=== PATIENT | female | born 1950 | race Caucasian/White ===

== ENCOUNTER 2016-12-28 18:03 | Emergency (ER) | payer OTHER ==
[2016-12-28] MEDS ORDERED: Amoxicillin/Clavulanate TAB* 875 MG PO ONE (19:43)
[2016-12-28] MEDS ORDERED: Tetan/Diph/Pertus SYR(Tdap)* 0.5 ML SYR(BOOSTRIX) use SYR IM ONE (19:44)
--- NOTE | 2016-12-28 19:44 | UC ---
Bite Injury/Animal HPI - HPI Summary HPI Summary: dog bite right third finger---Bite by her dog accidentally . PW to distal right third finger, patient utd on tetnus, dog up to date on rabies - History of Current Complaint Hx Obtained From: Patient ?: No Severity Currently: Mild Severity Initially: Mild Pain Intensity: 2 Pain Scale Used: 0-10 Numeric Onset/Duration: Sudden Onset, Lasting Hours, Still Present Type of Bite: Pet Has Animal Been Immunized?: Yes Character: Puncture Aggravating Factor(s): Nothing Alleviating Factor(s): Nothing Associated Signs And Symptoms: Positive: Negative Hx of Bite: Provoked by: - being scared and his tooth caught in another dogs collar Animal Available for Observation: Yes Animal Control Notified: Yes <Jennifer Castellano - Last Filed: 12/30/16 17:14> <Olga Medrano - Last Filed: 12/30/16 18:39> - History of Current Complaint Chief Complaint: UCBiteInjury Stated Complaint: DOG BITE Time Seen by Provider: 12/28/16 18:40 - Allergies/Home Medications Allergies/Adverse Reactions: Allergies Allergy/AdvReac Type Severity Reaction Status Date / Time Acetaminophen [From Vicodin] Allergy Nausea Verified 12/28/16 18:18 Hydrocodone [From Vicodin] Allergy Nausea Verified 12/28/16 18:18 Home Medications: Home Medications Aspirin [Aspirin 81 MG TAB] 81 mg PO DAILY 12/28/16 [History Confirmed 12/28/16] Citracal TAB* 1 tab PO DAILY 12/28/16 [History Confirmed 12/28/16] PMH/Surg Hx/FS Hx/Imm Hx Previously Healthy: No - Surgical History Surgical History: None - Family History Known Family History: Positive: None Family History: no reported cardiovascular issues in family lineage - Social History Occupation: Retired Lives: With Family Alcohol Use: Rare Substance Use Type: None Smoking Status (MU): Never Smoked Tobacco <Jennifer Castellano - Last Filed: 12/30/16 17:14> Review of Systems Constitutional: Negative Skin: Negative, Bruising - distal right third finger also 2 punture wound and small amount of flapped skin avulasion just proximal to nail Eyes: Negative ENT: Negative Respiratory: Negative Cardiovascular: Negative Gastrointestinal: Negative Genitourinary: Negative Motor: Negative Neurovascular: Negative Musculoskeletal: Negative, Arthralgia - right 3rd finger Neurological: Negative Psychological: Negative All Other Systems Reviewed And Are Negative: Yes <Jennifer Castellano - Last Filed: 12/30/16 17:14> Physical Exam Triage Information Reviewed: Yes Appearance: Well-Appearing, No Pain Distress, Well-Nourished Vital Signs: Initial Vital Signs Temp 98 F 12/28/16 18:20 Pulse 81 12/28/16 18:20 Resp 20 12/28/16 18:20 BP 207/110 12/28/16 18:20 Pulse Ox 100 12/28/16 18:20 Vital Signs Reviewed: Yes Eye Exam: Normal Eyes: Positive: Conjunctiva Clear ENT Exam: Normal ENT: Positive: Normal ENT inspection, Hearing grossly normal. Negative: Nasal congestion, Nasal drainage, Trismus, Muffled/hoarse voice Dental Exam: Normal Neck exam: Normal Neck: Positive: Supple, Nontender Respiratory Exam: Normal Respiratory: Positive: Chest non-tender, No respiratory distress, No accessory muscle use Cardiovascular Exam: Normal Cardiovascular: Positive: RRR, Pulses Normal, Brisk Capillary Refill Musculoskeletal Exam: Other Musculoskeletal: Positive: Strength Limited @ - distal right third finger, ROM Limited @ - distal right third finger, Edema @ - right third fing Neurological Exam: Normal Neurological: Positive: Alert, Muscle Tone Normal Psychological Exam: Normal Skin Exam: Other Skin: Positive: Other - 2 pw distal right 3rd. finger--flap skin avulasion just distal to nail <Jennifer Castellano - Last Filed: 12/30/16 17:14> Vital Signs: Initial Vital Signs Temp 98 F 12/28/16 18:20 Pulse 81 12/28/16 18:20 Resp 20 12/28/16 18:20 BP 207/110 12/28/16 18:20 Pulse Ox 100 12/28/16 18:20 <Olga Medrano - Last Filed: 12/30/16 18:39> Diagnostics - Radiology No standard instances Xray Interpretation: Positive (See Comments) - nondisplaced distal phalange 3rd right fx Radiology Interpretation Completed By: Radiologist <Jennifer Castellano - Last Filed: 12/30/16 17:14> Bite Injury Course/Dx - Course Course Of Treatment: aggressive cleaning, steri to skin flap, start augmentin, follow with ortho, dressing and splint---follow BP with Dr. hartley in 1-2 days - Differential Dx/Diagnosis Differential Diagnosis/HQI/PQRI: Crush Injury, Joint Space Infection, Puncture Provider Diagnoses: Dog Bite with distal fracture and pucture wound to right 3rd finger, High blood pressure without dx of hypertension <Jennifer Castellano - Last Filed: 12/30/16 17:14> Discharge <Jennifer Castellano - Last Filed: 12/30/16 17:14> <Olga Medrano - Last Filed: 12/30/16 18:39> - Discharge Plan Condition: Stable Disposition: HOME Prescriptions: Amoxicillin/Clavulanate TAB* [Augmentin TAB 875*] 875 mg PO BID #19 tab Patient Education Materials: Diphtheria/Acellular Pertussis/Tetanus Booster Vaccine (By injection), Animal Bite (ED), Finger Fracture (ED), DASH Eating Plan (ED), Hypertension (ED), RICE Therapy (ED) Referrals: Marshal Hartley MD [Primary Care Provider] - 2 Days Alma Delia Alvarez MD [Medical Doctor] - 3 Days Additional Instructions: Your blood pressure this night was 212/116! This requires urgent follow up! Attestation Statement User Type: Provider - I was available for consult. This patient was seen by the PATRICIA. The patient was not presented to, seen by, or examined by me. -Bailey <Olga Medrano - Last Filed: 12/30/16 18:39>
--- NOTE | 2016-12-28 20:07 | RAD ---
HISTORY: Dog bite, penetrating trauma COMPARISONS: None VIEWS: 3, Frontal, lateral, and oblique views of the third digit of the right hand FINDINGS: BONE DENSITY: There is diffuse osteopenia. 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 ALIGNMENT: There is no dislocation. SOFT TISSUES: Unremarkable. OTHER FINDINGS: None. IMPRESSION: 1. NONDISPLACED FRACTURE OF THE DISTAL PHALANX OF THE THIRD DIGIT. 2. OSTEOARTHRITIS.
[2016-12-28 20:11] VITALS: BP 228/183
[2016-12-28] MEDS ORDERED: Benzoin Compound STICK TOPICAL ONE (20:30)
== END 2016-12-28 21:03 | disposition home or self-care (01) ==
LOC: UCEAST 18:03
DX: S62.662A Nondisplaced fracture of distal phalanx of right middle finger, initial encounter for closed fracture (principal); M19.041 Primary osteoarthritis, right hand; R03.0 Elevated blood-pressure reading, without diagnosis of hypertension; W54.0XXA Bitten by dog, initial encounter; Y93.9 Activity, unspecified; Y92.9 Unspecified place or not applicable; Z23 Encounter for immunization; Z88.6 Allergy status to analgesic agent; Z88.5 Allergy status to narcotic agent
CPT/HCPCS: 73140; 90471; 90715; 99203; A9270-GY; G0463